=== PATIENT | male | born 1975 | race Caucasian/White ===

== ENCOUNTER 2024-09-07 16:35 | Emergency (ER) | payer BC, SELFPAY ==
[2024-09-07 16:36] VITALS: BP 186/116
[2024-09-07 16:59] LABS: % Basophils 0.8 % (0-2); % Eosinophils 6.6 % (0-6); % Immature Granulocytes 0.6 % (0-0.5); % Lymphocytes 19.8 % (20.5-51.1); % Monocytes 10.6 % (1.7-9.3); % Neutrophils 61.6 % (42.2-75.2); Absolute Basophils 0.1 10^3/uL (0-0.2); Absolute Eosinophils 0.6 10^3/uL (0-0.7); Absolute Immature Granulocytes 0.1 10^3/uL (0-0.05); Absolute Lymphocytes 1.9 10^3/uL (1.2-3.4); Absolute Neutrophils 5.9 10^3/uL (1.4-6.5); Hematocrit 39.5 % (39.0-52.0); Mean Corp Hgb Conc. 35.4 g/dL (33.0-37.0); Mean Corpuscular Hgb 32.3 pg (27.0-31.0); Mean Platelet Volume 9.6 fL (7.4-10.4); Nucleated Red Blood Cells % 0 % (-); Platelet Count 148 10^3/uL (130-400); Red Blood Cell Count 4.34 10^6/uL (4.70-6.10); Red Cell Dist. Width 11.9 % (11.5-14.5); White Blood Cell Count 9.5 10^3/uL (4.8-10.8)
[2024-09-07 17:07] LABS: ALT (SGPT) 53 U/L (0-50); AST (SGOT) 48 U/L (17-59); Albumin 4.4 g/dl (3.5-5.0); Alkaline Phosphatase 63 U/L (38-126); Blood Urea Nitrogen 11 mg/dl (9-20); Carbon Dioxide 31 mmol/L (22-30); Chloride 100 mmol/L (98-107); Glucose 105 mg/dl (70-99); Potassium 4.3 mmol/L (3.5-5.1); Sodium 140 mmol/L (135-145); Total Bilirubin 0.6 mg/dl (0.2-1.3); Total Protein 7.2 g/dl (6.3-8.2); eGFR > 60.00
[2024-09-07 17:15] LABS: Troponin I < 0.012 ng/ml
[2024-09-07 19:01] VITALS: BMI 42.8
--- NOTE | 2024-09-07 19:31 | ED.GENMED ---
History of Present Illness
General
Chief Complaint: Blood Pressure Problem
Source: patient
Time Seen by Provider: 09/07/24 19:20
History of Present Illness
History of Present Illness:
This patient is a 49-year-old male presents emergency department with reported elevated blood pressure. He states he is compliant with his 2 blood pressure medications that he takes every evening. His last dose was last evening. He says he went
to work and felt his usual self all day yesterday. He went to bed feeling well, but awoke with a 'sensation came over him associated with a very 'slight' headache and 'slight dizziness', all of which lasted a few seconds and then resolved
completely. He went back to bed. He woke up this morning and told his who is in the medical field about his symptoms. He also says he feels a little tired when he woke up. She checked his blood pressure and noted it was elevated. When he
contacted his family doctor he was referred to the emergency department. He feels completely asymptomatic. He denies recent chest pain or pressure, dyspnea, abdominal pain, nausea, vomiting, numbness, tingling, focal weakness, change in vision,
change in speech, or other complaints.
Past History
Past History
ED Past Medical History: Psychiatric and Other (Hypertension, diabetes, hypercholesterolemia)
ED Past Surgical History: None
Social History
Tobacco: Non-smoker
Alcohol: None
Personal:
Living: with family
Employment: Employed
Phy Exam
Physical Exam
Physical Exam:
GENERAL: Alert , in no apparent distress, slightly overweight, watching TV and very comfortable
EYE: pupils equal and reactive
NECK: Supple, no significant adenopathy.
ENT: o/p clr, mmm.
CARDIAC: Regular rate and rhythm .
LUNGS: Clear breath sounds bilaterally, no acute respiratory distress, no wheezes/rales/rhonchi
ABDOMEN: Soft, without focal tenderness, no r/g, no cvat
NEUROLOGICAL: Alert and oriented, no focal neuro deficits, motor 5 out of 5 cranial nerves II through XII intact, [id number] normal, sensation intact
SKIN: Warm and dry, skin intact.
MUSCULOSKELETAL: No edema, well perfused.
PSYCH: Normal and appropriate interaction.
Course
Orders/Labs/Results
Orders:
Orders
09/07/24 16:38
ECG [Electrocardiogram (*1)] Urgent
Reason for Study: Hypertension, Benign
EKG- Treatment ONCE
09/07/24 16:44
Complete Blood Count/With Diff Urgent
Comprehensive Metabolic Panel Urgent
Troponin I Urgent
09/07/24 19:20
CT Head W/o Iv Contrast Urgent
Comment:
Reason For Exam: dizzy, htn
09/07/24 19:31
Atenolol [Tenormin] 50 mg PO NOW STA
09/07/24 19:43
Losartan [Cozaar] 50 mg .ROUTE .STK-MED ONE
09/07/24 19:47
Losartan [Cozaar] 50 mg PO NOW STA
Abnormal Lab Results
09/07/24
16:44
RBC 4.34 L 10^6/uL
(4.70-6.10)
MCH 32.3 H pg
(27.0-31.0)
Abs Immat Gran (auto) 0.1 H 10^3/uL
(0-0.05)
Absolute Monos (auto) 1.0 H 10^3/uL
(0.1-0.6)
Immature Gran % 0.6 H %
(0-0.5)
Lymphocytes % 19.8 L %
(20.5-51.1)
Monocytes % 10.6 H %
(1.7-9.3)
Eosinophils % 6.6 H %
(0-6)
Carbon Dioxide 31 H mmol/L
(22-30)
Glucose 105 H mg/dl
(70-99)
ALT 53 H U/L
(0-50)
09/07/24 16:44
09/07/24 16:44
Vital Signs
Initial and Last Documented VS:
Initial Vital Signs
Temp Pulse Resp BP Pulse Ox
98.5 F 87 20 186/116 99
09/07/24 16:36 09/07/24 16:36 09/07/24 16:36 09/07/24 16:36 09/07/24 16:36
Last Documented Vital Signs
Temp Pulse Resp BP Pulse Ox
98.8 F 94 22 166/88 98
09/07/24 19:07 09/07/24 19:46 09/07/24 19:45 09/07/24 19:46 09/07/24 19:30
Update Note
Update Note:
Patient presents to the Emergency Department with reported hypertension
Number and Complexity of Problems Addressed at the Encounter
� Chronic conditions affecting care:
� Acute Exacerbation and/or Progression of Chronic Illness:
� Differential Diagnosis includes: But not limited to hypertensive urgency, hypertensive emergency, medication noncompliance, etc. etc.
Amount and/or Complexity of Data to be Reviewed and Analyzed
� I performed an independent evaluation of and my interpretation is:
EKG: Read by me, normal sinus rhythm, normal rate, no acute ischemia
CT: Mild diffuse cerebral and cerebellar volume loss.
2. Mild mucosal disease in the ethmoid air cells. Dr Mota
Xrays:
Laboratory Studies: Generally unremarkable
Other:
� Review of other/old records reveals:
� Clinical information was obtained by an independent historian:
� Prescriptions/Medications Considered but not given:
� Further testing considered but not performed:
Risk of Complications and/or Morbidity or Mortality of Patient Management
� Social determinants of health affecting care:
� Discussion with other providers (PCP, Hospitalists, Consultants, etc):
� Escalation of care including admission/observation vs risk of discharge considered: Patient will be given his usual nighttime hypertensive medications, CT pending.
7:59 PM patient remains asymptomatic. Blood pressure has spontaneously come down although is still elevated. No signs or symptoms to suggest endorgan injury at this time. Will recommend patient have close monitoring of his blood pressure by his
PCP with contact beginning tomorrow and continue his usual BP meds. Educated patient regarding reasons to return to the ER
ED Attending Note
-
Portions of this chart may have been created with voice recognition software.� Occasional wrong word or��sound alike� substitutions may have occurred due to the inherent limitations of voice recognition software.
Discharge Plan
Departure
Patient Disposition: Home (Routine Discharge)
Date of Disposition: 09/07/24
Time of Disposition: 20:00
Patient with high blood pressure during this ER visit?: Yes
Condition: Good
Discharge Problem:
Hypertension
Instructions: High Blood Pressure (DC), BLOOD PRESSURE
Prescriptions:
No Action
losartan 50 mg Tablet
50 mg PO DAILY
alprazolam 1 mg Tablet
1 mg PO DAILY
sertraline 100 mg Tablet
100 mg PO DAILY
atenolol 50 mg Tablet
50 mg PO DAILY
rosuvastatin 10 mg Tablet
10 mg PO DAILY
metformin 500 mg Tablet Extended Release 24hr
500 mg PO DAILY
Referrals:
Tj Francois DO [Family Provider] - Tomorrow
Activity Restrictions/Additional Instructions:
TODAY HER BLOOD PRESSURE WAS NOTED TO BE ABNORMALLY ELEVATED. IT HAS SINCE REDUCED HOWEVER IS STILL CONSIDERED ELEVATED. IT IS IMPORTANT THAT YOU MONITOR YOUR BLOOD PRESSURE CLOSELY AND SEE YOUR DOCTOR IN PROMPT FOLLOW-UP. PLEASE CONTACT HIM
TOMORROW. TAKE YOUR MEDICATIONS PRESCRIBED. IF YOU DEVELOP CHEST PAIN, SHORTNESS OF BREATH, NUMBNESS, TINGLING, WEAKNESS, SEVERE HEADACHE, SEVERE NECK PAIN, VISUAL CHANGES, OR OTHER WORRISOME SIGNS, PLEASE RETURN TO THE ER IMMEDIATELY.
Interventions
Interventions:
*Risk Screen - Suicide Last Done: 09/07/24 18:59
*General Assessment Last Done: 09/07/24 16:36
*Neglect/Abuse Screening Last Done: 09/07/24 18:59
*ED- Fall Risk Assessment Last Done: 09/07/24 18:59
*ED COVID-19 Vaccine History Last Done: 09/07/24 18:59
ED- Pulmonary Assessment Last Done: 09/07/24 18:59
ED- Neurological Assessment Last Done: 09/07/24 18:59
ED- Cardiac Assessment Last Done: 09/07/24 18:59
Discharge Date and Time
Print Language: JAPANESE
[2024-09-07 19:40] VITALS: BP 174/97
[2024-09-07 19:42] VITALS: BP 166/88
[2024-09-07] MEDS: TENORMIN 50 MG PO (19:46)
[2024-09-07] MEDS: COZAAR 50 MG PO (19:47)
[2024-09-07 20:00] VITALS: BP 158/96
== END 2024-09-07 20:17 | disposition home or self-care (01) ==
LOC: EMR 16:35
PROVIDERS: Emergency Medicine; EMERGENCY PHYSICIAN Emergency Medicine; FAMILY PHYSICIAN Family Medicine
DX: I10 Essential (primary) hypertension (principal); E78.00 Pure hypercholesterolemia, unspecified; E11.9 Type 2 diabetes mellitus without complications
CPT/HCPCS: 99284; 70450; 80053; 84484; 85025; 93005